=== PATIENT | female | born 1945 | race Two or more races ===

== ENCOUNTER 2019-08-30 10:33 | Emergency (ER) | payer MEDICARE, MEDICAID ==
[~2019-08-30] VITALS: Ht 165.1 cm; Wt 89.8 kg
[2019-08-30 10:44] VITALS: BP 131/79
[2019-08-30] MEDS ORDERED: ACETAMINOPHEN 325 MG TABLET ONE (12:12)
[2019-08-30] MEDS ORDERED: ACETAMINOPHEN 325 MG TABLET PO ONE (12:30)
== END 2019-08-30 12:28 | disposition home or self-care (01) ==
LOC: ER 10:33
DX: S16.1XXA Strain of muscle, fascia and tendon at neck level, initial encounter (principal); S39.012A Strain of muscle, fascia and tendon of lower back, initial encounter; I10 Essential (primary) hypertension; E11.9 Type 2 diabetes mellitus without complications; V49.59XA Passenger injured in collision with other motor vehicles in traffic accident, initial encounter; Y93.89 Activity, other specified; Y92.488 Other paved roadways as the place of occurrence of the external cause; Y99.8 Other external cause status
CPT/HCPCS: 72125-TC; 72131-TC